=== PATIENT | male | born 1995 | race Caucasian/White ===

== ENCOUNTER 2017-12-06 15:27 | Emergency (ER) | payer SELFPAY ==
[2017-12-06 16:29] VITALS: BP 164/79; PULSE 98; RESP 20; TEMP 37.2; O2SAT 98; BMI 33.5
[2017-12-06 16:38] LABS: UTC Strep Screen (Rapid) Positive (Negative)
--- NOTE | 2017-12-06 17:04 | HMH.EDUTC ---
[facility] [place]: Strep throat Disposition: Home, Self-Care Condition on Discharge: Good Instructions: DI for Strep Throat Additional Instructions: * Start antibiotic RAFAEL and be sure to take as ordered for the FULL length of time although you should start to feel better in 24-48 hours. * change toothbrush and toothpaste 24-48 hours after starting antibiotic * Monitor Temp. Tylenol every 4 hours as needed no more then 5 times a day or 4000mg in 24 hours and/or ibuprofen every 6 hours as needed no more then 3200mg in 24 hours (as long as your primary care doctor has told you that it is ok to take both) for fever/aches/pain. ER if fever no less than 101 despite tylenol and Ibuprofen * Encourage fluids, water, gatorade, powerade, pedialyte if infant/toddler/child * cold fluids, popsicles, ice cream feel good * you are contagious until you have taken the antibiotic for 24 hours. No school tomorrow. * Avoid kissing anyone, including parents. No eating or drinking after anyone. You are contagious. Follow up IMMEDIATELY for new or worsening symptoms OR no noticeable improvement over the next 24-48 hours. 911 for difficulty breathing or swallowing Forms: Work/School Release Time of Disposition: 17:16 Medical Decision Making Vital Signs: 12/06/17 16:29 Temperature 98.9 F Temperature Source Temporal Artery Scan Pulse Rate [Brachial] 98 H Respiratory Rate 20 Blood Pressure [Right Arm] 164/79 Blood Pressure Mean [Right Arm] 107 Blood Pressure Source [Right Arm] Automatic Cuff Blood Pressure Position [Right Arm] Sitting 02 Sat by Pulse Oximetry 98 Oxygen Delivery Method Room Air - Lab Data Lab Results 12/06/17 16:35: Strep Scn Rapid [facility] Positive A Orders (Tests/Meds): ED MEDICATIONS Discontinued Medications Generic Name Dose Route Start Last Admin Trade Name Freq PRN Reason Stop Dose Admin Ibuprofen 800 mg 12/06/17 16:36 12/06/17 16:41 Motrin 400mg Tablet PO 12/06/17 16:37 800 mg ONCE ONE Administration - Chris Inquiry Pt receiving controlled substance: No [facility] [place] - General Stated complaint: L side throat swelling Time Seen by Provider: 12/06/17 16:50 Mode of Arrival: Ambulatory Source of Information: Patient Limitations: No Limitations Description of Symptoms (Recalled from Triage Doc. by RN): LEFT SIDED THROAT PAIN, DIFFICULTY SWALLOWING X 1 DAY HEENT Symptoms (Recalled from RN notes): Yes Resp Symptoms (Recalled from RN notes): No Skin Symptoms (Recalled from RN notes): No MS Symptoms (Recalled from RN notes): No Functional Status (Recalled from RN notes): NA - History of Present Illness Provider Complaint: c/o sore throat since yesterday. Worse this morning. Very painful to swallow but physically able to swallow. No known sick contacts. denies other symptoms. Hasn't taken or tried anything for symptoms. - Related Data Home Medications Medication Instructions Recorded Confirmed No Known Home Medications [No 12/06/17 12/06/17 Known Home Medications] Allergies Allergy/AdvReac Type Severity Reaction Status Date / Time Sulfa (Sulfonamide Allergy Unknown Verified 12/06/17 16:34 Antibiotics) [SULFA (SULFONAMIDE ANTIBIOTICS)] - Worker's Comp Is this a Worker's Comp case?: No [facility] History I have reviewed the patient's past medical history: Yes Medical History: Denies:: Diabetes Mellitus Type 1, Diabetes Mellitus Type 2, Hypertension Comment: TTP Other Surgeries: Yes: No Previous Surgery - *Social History Smoking Status: Never smoker Alcohol Intake: never - Psychiatric History Expresses thoughts of harming self/others: None Suicide Plan Description: No Plan ROS Obtained: Yes Appropriate systems reviewed & no add complaints except as noted - Constitutional Denies anorexia, Denies body ache(s), Denies chills, Denies fatigue, Denies fever(s) - Eyes Denies discharge - ENT Reports sore thro
--- NOTE | 2017-12-06 17:11 | ED_ITS ---
[facility] [place]: Strep [place] Disposition: Home, Self-Care Condition on Discharge: Good Instructions: DI for Strep Throat Additional Instructions: * Start antibiotic RAFAEL and be sure to take as ordered for the FULL length of time although you should start to feel better in 24-48 hours. * change toothbrush and toothpaste 24-48 hours after starting antibiotic * Monitor Temp. Tylenol every 4 hours as needed no more then 5 times a day or 4000mg in 24 hours and/or ibuprofen every 6 hours as needed no more then 3200mg in 24 hours (as long as your primary care doctor has told you that it is ok to take both) for fever/aches/pain. ER if fever no less than 101 despite tylenol and Ibuprofen * Encourage fluids, water, gatorade, powerade, pedialyte if infant/toddler/ child * cold fluids, popsicles, ice cream feel good * you are contagious until you have taken the antibiotic for 24 hours. No school tomorrow. * Avoid kissing anyone, including parents. No eating or drinking after anyone. You are contagious. Follow up IMMEDIATELY for new or worsening symptoms OR no noticeable improvement over the next 24-48 hours. 911 for difficulty breathing or swallowing Forms: Work/School Release Time of Disposition: 17:16 Medical Decision Making Vital Signs: 12/06/17 16:29 Temperature 98.9 F Temperature Source Temporal Artery Scan Pulse Rate [Brachial] 98 H Respiratory Rate 20 Blood Pressure [Right Arm] 164/79 Blood Pressure Mean [Right Arm] 107 Blood Pressure Source [Right Arm] Automatic Cuff Blood Pressure Position [Right Arm] Sitting 02 Sat by Pulse Oximetry 98 Oxygen Delivery Method Room Air - Lab Data Lab Results 12/06/17 16:35: Strep Scn Rapid Clinic Positive A Orders (Tests/Meds): ED MEDICATIONS Discontinued Medications Generic Name Dose Route Start Last Admin Trade Name Freq PRN Reason Stop Dose Admin Ibuprofen 800 mg 12/06/17 16:36 12/06/17 16:41 Motrin 400mg Tablet PO 12/06/17 16:37 800 mg ONCE ONE Administration - Chris Inquiry Pt receiving controlled substance: No [facility] [place] - General Stated complaint: L side throat swelling Time Seen by Provider: 12/06/17 16:50 Mode of Arrival: Ambulatory Source of Information: Patient Limitations: No Limitations Description of Symptoms (Recalled from Triage Doc. by RN): LEFT SIDED THROAT PAIN, DIFFICULTY SWALLOWING X 1 DAY HEENT Symptoms (Recalled from RN notes): Yes Resp Symptoms (Recalled from RN notes): No Skin Symptoms (Recalled from RN notes): No MS Symptoms (Recalled from RN notes): No Functional Status (Recalled from RN notes): NA - History of Present Illness Provider Complaint: c/o sore throat since yesterday. Worse this morning. Very painful to swallow but physically able to swallow. No known sick contacts. denies other symptoms. Hasn't taken or tried anything for symptoms. - Related Data Home Medications Medication Instructions Recorded Confirmed No Known Home Medications [No 12/06/17 12/06/17 Known Home Medications] Allergies Allergy/AdvReac Type Severity Reaction Status Date / Time Sulfa (Sulfonamide Allergy Unknown Verified 12/06/17 16:34 Antibiotics) [SULFA (SULFONAMIDE ANTIBIOTICS)] - Worker's Comp
== END 2017-12-06 17:26 | disposition home or self-care (01) ==
PROVIDERS: Emergency Provider Nurse Practitioner Family
DX: J02.0 Streptococcal pharyngitis (principal); Z88.2 Allergy status to sulfonamides
CPT/HCPCS: 87430; 87880; 99202

== ENCOUNTER 2018-01-20 17:26 | Emergency (ER) | payer SELFPAY ==
[2018-01-20 18:49] VITALS: BP 142/73; PULSE 84; RESP 20; TEMP 36.8; O2SAT 99; BMI 32.3
--- NOTE | 2018-01-20 19:24 | HMH.EDUTC ---
[facility] [place] Impression: URI (upper respiratory infection) Qualifiers: URI type: unspecified URI Qualified Code(s): J06.9 - Acute upper respiratory infection, unspecified Disposition: Home, Self-Care Condition on Discharge: Good Instructions: Sore Throat, DI for Ear Pain-Adult Additional Instructions: * Monitor Temp. Tylenol and/or Ibuprofen as needed. ER if fever is no less than 101 despite alternating Tylenol and Ibuprofen * Encourage fluids, water, Gatorade, powerade, pedialyte if /toddler/or child * Warm salt water gargles for throat irritation *Warm fluids *Sore throat lozenges *Sleep elevated *humidifier or vaporizer Lots of rest Increase fluids, water, Gatorade, powerade *Flonase 2 sprays each nostril daily but may take 2-3 days to notice improvement with it *Bromfed may cause drowsiness. Know how it effect you or your child. Before driving, caring for small children or sending your child to school *Your throat swab was sent to lab for culture. Those results area typically sent to your primary care physician. Be sure to follow up in 2-3 days if no improvement so they can review those results and treat if necessary If you dont have primary care I recommend you get one, but in the mean time you will have to return to a walk in clinic Follow up IMMEDIATELY for new or worsening of symptoms OR no noticeable improvement over the next 48-72 hours. 911 immediately for any life threatening symptoms such as chest pain or difficulty breathing Prescriptions: Brompheniramine/Pseudoephed/Dm [Bromfed DM Cough Syrup 5mL] 10 ml PO Q4HP PRN #300 ml PRN Reason: Cough Azithromycin [Z-Bossman 250mg Tab] 250 mg PO UD DOSE PK #6 tab Fluticasone Propionate [Flonase 50mcg nasal spray 16gm] 2 spr NS DAILY #1 bottle predniSONE [Prednisone 5mg Tab Dose-Pack] 5 mg PO UD DOSE PK #21 pack Time of Disposition: 19:41 Medical Decision Making - Medical Records Medical records reviewed: Yes: I reviewed the patient's medical records. Vital Signs: 01/20/18 18:49 Temperature 98.3 F Temperature Source Temporal Artery Scan Pulse Rate [Right] 84 Respiratory Rate 20 Blood Pressure [Right Arm] 142/73 Blood Pressure Mean [Right Arm] 96 Blood Pressure Source [Right Arm] Automatic Cuff Blood Pressure Position [Right Arm] Sitting 02 Sat by Pulse Oximetry 99 Oxygen Delivery Method Room Air - Chris Inquiry Pt receiving controlled substance: No Chris was queried for this patient: No [facility] [place] - General Stated complaint: EYES SWOLLEN,EARS, Mode of Arrival: Ambulatory Source of Information: Patient Limitations: No Limitations Description of Symptoms (Recalled from Triage Doc. by RN): CONGESTION, EARS ACHE HEENT Symptoms (Recalled from RN notes): Yes Resp Symptoms (Recalled from RN notes): No Skin Symptoms (Recalled from RN notes): No MS Symptoms (Recalled from RN notes): No Functional Status (Recalled from RN notes): N - History of Present Illness Provider Complaint: Patient states that he has been feeling bad for 2 days now States that his ears have been hurting and his nose was stopped up State that he has been taking over the counter Tylenol for pain and fever and it has been helping State that he feels like his head is congested - Related Data Previous Rx's Medication Instructions Recorded Azithromycin [Z-Bossman 250mg Tab] 250 mg PO UD DOSE PK #6 tab 01/20/18 Brompheniramine/Pseudoephed/Dm 10 ml PO Q4HP PRN #300 ml 01/20/18 [Bromfed DM Cough Syrup 5mL] Fluticasone Propionate [Flonase 2 spr NS DAILY #1 bottle 01/20/18 50mcg nasal spray 16gm] predniSONE [Prednisone 5mg Tab 5 mg PO UD DOSE PK #21 pack 01/20/18 Dose-Pack] Allergies Allergy/AdvReac Type Severity Reaction Status Date / Time Sulfa (Sulfonamide Allergy Unknown Verified 12/06/17 16:34 Antibiotics) [SULFA (SULFONAMIDE ANTIBIOTICS)] - Worker's Comp Is this a Worker's Comp case?: No [facility] History I have reviewed the patient's
--- NOTE | 2018-01-20 19:31 | ED_ITS ---
[facility] [place] Clinical Impression: URI (upper respiratory infection) Qualifiers: URI type: unspecified URI Qualified Code(s): J06.9 - Acute upper respiratory infection, unspecified Disposition: Home, Self-Care Condition on Discharge: Good Instructions: Sore Throat, DI for Ear Pain-Adult Additional Instructions: * Monitor Temp. Tylenol and/or Ibuprofen as needed. ER if fever is no less than 101 despite alternating Tylenol and Ibuprofen * Encourage fluids, water, Gatorade, powerade, pedialyte if /toddler/or child * Warm salt water gargles for throat irritation *Warm fluids *Sore throat lozenges *Sleep elevated *humidifier or vaporizer Lots of rest Increase fluids, water, Gatorade, powerade *Flonase 2 sprays each nostril daily but may take 2-3 days to notice improvement with it *Bromfed may cause drowsiness. Know how it effect you or your child. Before driving, caring for small children or sending your child to school *Your throat swab was sent to lab for culture. Those results area typically sent to your primary care physician. Be sure to follow up in 2-3 days if no improvement so they can review those results and treat if necessary If you don? t have primary care I recommend you get one, but in the mean time you will have to return to a walk in clinic Follow up IMMEDIATELY for new or worsening of symptoms OR no noticeable improvement over the next 48-72 hours. 911 immediately for any life threatening symptoms such as chest pain or difficulty breathing Prescriptions: Brompheniramine/Pseudoephed/Dm [Bromfed DM Cough Syrup 5mL] 10 ml PO Q4HP PRN # 300 ml PRN Reason: Cough Azithromycin [Z-Bossman 250mg Tab] 250 mg PO UD DOSE PK #6 tab Fluticasone Propionate [Flonase 50mcg nasal spray 16gm] 2 spr NS DAILY #1 bottle predniSONE [Prednisone 5mg Tab Dose-Pack] 5 mg PO UD DOSE PK #21 pack Time of Disposition: 19:41 Medical Decision Making - Medical Records Medical records reviewed: Yes: I reviewed the patient's medical records. Vital Signs: 01/20/18 18:49 Temperature 98.3 F Temperature Source Temporal Artery Scan Pulse Rate [Right] 84 Respiratory Rate 20 Blood Pressure [Right Arm] 142/73 Blood Pressure Mean [Right Arm] 96 Blood Pressure Source [Right Arm] Automatic Cuff Blood Pressure Position [Right Arm] Sitting 02 Sat by Pulse Oximetry 99 Oxygen Delivery Method Room Air - Chris Inquiry Pt receiving controlled substance: No Chris was queried for this patient: No [facility] [place] - General Stated complaint: EYES SWOLLEN,EARS, Mode of Arrival: Ambulatory Source of Information: Patient Limitations: No Limitations Description of Symptoms (Recalled from Triage Doc. by RN): CONGESTION, EARS ACHE HEENT Symptoms (Recalled from RN notes): Yes Resp Symptoms (Recalled from RN notes): No Skin Symptoms (Recalled from RN notes): No MS Symptoms (Recalled from RN notes): No Functional Status (Recalled from RN notes): N - History of Present Illness Provider Complaint: Patient states that he has been feeling bad for 2 days now States that his ears have been hurting and his nose was stopped up State that he has been taking over the counter Tylenol for pain and fever and it has been helping State that he feels like his head is congested - Related Data Previous Rx's Medication Instructions Recorded Azithromycin [Z-Bossman 250mg Tab] 250 mg PO UD DOSE PK #6 tab 01/20/18 Brompheniramine/Pseudoephed/Dm 10 ml PO Q4HP PRN #300 ml 01/20/18
[2018-01-20 19:43] VITALS: BP 140/72; PULSE 80; RESP 20; TEMP 36.8
== END 2018-01-20 19:44 | disposition home or self-care (01) ==
PROVIDERS: Emergency Provider Nurse Practitioner
DX: J06.9 Acute upper respiratory infection, unspecified (principal); Z88.2 Allergy status to sulfonamides
CPT/HCPCS: 99202

== ENCOUNTER 2023-03-26 14:37 | Emergency (ER) | payer BC, SELFPAY ==
[2023-03-26 15:21] VITALS: BP 116/81; PULSE 87; RESP 18; TEMP 36.8; O2SAT 100; BMI 28.7
--- NOTE | 2023-03-26 16:18 | EXP.UTC ---
Discharge Plan Prescriptions Prescriptions: No Action azithromycin 250 MG tablet 250 mg PO UD DOSE PK Qty: 6 0RF Rx Instructions: Take two (2) tablets today, then one (1) tablet days #2 thru #5 prednisone 5 MG tablets,dose pack 5 mg PO UD DOSE PK Qty: 21 0RF [id number] 473 ML syrup 10 ml PO Q4HP PRN (Reason: Cough) Qty: 300 0RF fluticasone propionate 120 SPR/BOT bottle 2 spr NS DAILY Qty: 1 0RF Referrals Follow up/Referrals: Ely Leija MD [Primary Care Provider] - See instructions Activity Restrictions/Add. Instructions Additional Instructions/Restrictions: Suture instructions: ?You have required stitches today. Please read the following instructions so you know how to care for them: ?1. Keep wound area dry for the first 24 hours. 2?? May clean gently with mild soap and water, after 48 hours to prevent crusting over suture knots. 3. You may shower if your provider gives permission but do not take a bath until the skin is healed.. 4. Never leave a wet dressing or Band-Aid on your stitches as this allows bacteria to reach the area and may cause infection. Band-aids can cause the wound to sweat and not recommended to wear for long periods of time Watch for signs of infection: ? Increasing redness, tenderness or warmth around the suture site ? Unusual swelling around the site ? Appearance of pus around each suture or any red streaks ? Fever If you develop any of the above signs or symptoms of infection, Follow up with Family Physician immediately 5. Suture removal in _7-10___days 6. Return to [facility] or follow up with family doctor for removal. This can be done by any medical provider dur?ing regular hours on Saturday through Saturday, by appointment. Clinical Impressions Clinical Impression: Laceration Instructions Patient Instructions: DI for Laceration Repair Discharge ED Provider: Deb Durand [facility] [place] H[place] General Stated complaint: AO4/25@home@1330 lac on Rt arm Mode of Arrival: Ambulatory Source of Information: Patient Limitations: No Limitations Time Seen by Provider: 03/26/23 16:18 Description of Symptoms (Recalled from Triage Doc. by RN): pt presents with a lac to his RFA. pt states he cut it on a metal door to the barn around 1345. pt is up to date on tetnus vacc. HEENT Symptoms (Recalled from RN notes): No Resp Symptoms (Recalled from RN notes): No Skin Symptoms (Recalled from RN notes): Yes MS Symptoms (Recalled from RN notes): No Functional Status (Recalled from RN notes): wnl History of Present Illness Provider Complaint: Patient states that he cut his right forearm on metal door of barn earlier today States that he noticed it looks like he may need stiches so he came in to get it checked just had tetanus last year Related Data Previous Rx's Medication Instructions Recorded azithromycin 250 mg tablet 250 mg PO UD DOSE PK #6 tabs 01/20/18 [id number] 10 ml PO Q4HP PRN Cough #300 mL 01/20/18 2 mg-30 mg-10 mg/5 mL oral syrup fluticasone propionate 50 2 spr NS DAILY ##1 01/20/18 mcg/actuation nasal spray,suspension prednisone 5 mg tablets in a dose 5 mg PO UD DOSE PK ##21 01/20/18 pack Allergies Allergy/AdvReac Type Severity Reaction Status Date / Time Sulfa (Sulfonamide Allergy Unknown Verified 03/26/23 15:40 Antibiotics) [SULFA (SULFONAMIDE ANTIBIOTICS)] hydrocodone Allergy Verified 03/26/23 15:40 Worker's Comp Is this a Worker's Comp case?: No [facility] Disclaimer: The information contained in this section may have been updated after the patient was seen, as this information can be updated by other users. Social History Smoking Status: Never smoker alcohol intake: never current occupational status: employed Travel in the last 8 weeks: None ROS Obtained: Yes All systems reviewed & no additional complaints except as documented and Yes Systems reviewed as appropriate & no additional comp
[2023-03-26 16:51] VITALS: BP 116/81; PULSE 87; RESP 18; TEMP 36.8
== END 2023-03-26 16:55 | disposition home or self-care (01) ==
LOC: UTC 14:49
PROVIDERS: Emergency Provider Nurse Practitioner; PCP Family Medicine
DX: S51.811A Laceration without foreign body of right forearm, initial encounter (principal); W26.8XXA Contact with other sharp object(s), not elsewhere classified, initial encounter
CPT/HCPCS: 12001; 99213; 99214; G0463